=== PATIENT | female | born 1950 | race American Indian/Alaskan Native ===

== ENCOUNTER 2016-04-12 20:22 | Inpatient (IN) | payer OTHER ==
[~2016-04-12 20:22] MED LIST: AMIDATE IV ONE; VERSED IV ONE
[2016-04-12] MEDS ORDERED: LASIX IV ONE (21:55)
[2016-04-12] MEDS ORDERED: BABY ASPIRIN PO ONE (21:58)
--- NOTE | 2016-04-12 21:58 | Emergency Department Report ---
HPI - General Chief Complaint: Dyspnea/Respdistress Time Seen by Provider: 04/12/16 21:34 - HPI HPI: The patient is a 65-year-old female with a significant history of congestive heart failure, presents for evaluation of dyspnea. The patient reports progressive dyspnea since yesterday, greater than 24 hours ago, constant, severe since this evening, exacerbated with lying flat or exertion/physical activity, improves with rest and sitting up. The patient also reports associated swelling of the legs. The patient denies fever, cough, chest pain, hemoptysis, unilateral leg swelling, recent immobilization, history of DVT or PE , recent cancer. ED Past Medical Hx - Past Medical History Previous Medical History?: Yes Hx Hypertension: Yes Hx Congestive Heart Failure: Yes Additional medical history: pinworms 03/2016 - Surgical History Past Surgical History?: Yes Additional Surgical History: hysterectomy - Social History Smoking Status: Current Some Day Smoker Substance Use Type: None - Medications Home Medications: Home Medications Medication Instructions Recorded Confirmed Last Taken Type Aspirin 81 mg PO DAILY 04/12/16 04/12/16 Unknown History Lisinopril [Zestril] 5 mg PO QDAY 04/12/16 04/12/16 Unknown History Metoprolol [Lopressor] 25 mg PO BID 04/12/16 04/12/16 Unknown History Simvastatin [Zocor TAB] 20 mg PO QHS 04/12/16 04/12/16 Unknown History amLODIPine [Norvasc] 10 mg PO DAILY 04/12/16 04/12/16 Unknown History ED Review of Systems ROS: Stated complaint: AMS,WEAKNESS Other details as noted in HPI Constitutional: denies: fever ENT: denies: throat or neck pain Respiratory: reports shortness of breath Cardiovascular: denies: chest pain Endocrine: denies unexplained weight loss or gain Gastrointestinal: denies: abdominal pain, nausea Genitourinary: denies: dysuria Musculoskeletal: reports leg swelling Skin: denies: rash Neurological: denies: headache Hematological/Lymphatic: denies: easy bleeding or easy bruising Psych: denies sadness or hopelessness Physical Exam - Physical Exam Vital Signs: Vital Signs 04/12/16 04/12/16 04/12/16 21:05 21:07 21:10 Temperature 98.3 F 98.3 F Pulse Rate 102 H 104 H 101 H Respiratory 36 H 36 H 38 H Rate Blood Pressure 85/46 90/51 Blood Pressure 85/42 [Left] O2 Sat by Pulse 76 L 76 L 91 Oximetry Physical Exam: General: well-nourished, well-developed, no acute distress Head: Normocephalic, atraumatic Eyes: normal sclera ENT: Mucous membranes are pink and moist Neck: trachea midline, neck supple, No neck stiffness, no cervical adenopathy Respiratory: Diminished breath sounds and crackles presents tothe lung blair bilaterally, costal retractions present, patient in mild respiratory distress Cardio: S1 and S2 present, no murmurs, rubs, gallops, capillary refill is brisk Abdomen: Normoactive bowel sounds, soft abdomen, no rigidity, no guarding or rebound tenderness Musc: 1+ pitting edema of the legs present bilaterally Skin: No rash Neuro: no facial drooping, normal speech Psych: Normal affect ED Course Vital Signs 04/12/16 04/12/16 04/12/16 21:05 21:07 21:10 Temperature 98.3 F 98.3 F Pulse Rate 102 H 104 H 101 H Respiratory 36 H 36 H 38 H Rate Blood Pressure 85/46 90/51 Blood Pressure 85/42 [Left] O2 Sat by Pulse 76 L 76 L 91 Oximetry ED Medical Decision Making - Lab Data Result diagrams: 04/12/16 22:06 04/12/16 22:06 - Medical Decision Making The patient was seen and examined by myself. The patient is placed on a monitoring coordinator and continuous pulse ox. On initial evaluation, the patient was found to be in respiratory distress. The patient is placed on BiPAP. Evaluation orders were placed. Frequent bedside evaluations are performed to assess patient responsiveness to BiPAP. Chest x-ray demonstrates pulmonary vascular congestion and bilateral pleural effusions. Lab results revealed hypoxemia, PO2 56 on ABG, elevated BNP of 10,000 , low Hgb of 7.3, elevated WBC of 21, and elevated creatinine of 2.1. The patient is given IV Lasix for treatment of acute congestive heart failure and one unit of PRBCs is ordered. The patient was reevaluated and found to have decrease in SBP to 70-80, and decrease in oxygen saturation on pulse oximetry to 85%. The patient's ventilation settings are adjusted, including increased and IPAP and EPAP, and the patient is started on a dobutamine drip. Multiple bedside assessments were performed to assess patient hypotension. The patient was again reevaluated and found to have resolution of hypoxia, O2 sat now 95-97%, but the patient has no improvement in blood pressure despite increasing titration of dobutamine drip. The patient is given 500 cc normal saline fluid bolus and started on a Levophed drip. A left femoral central line was placed successfully. The on-call hospitalist service was contacted. They agreed to admit the patient for further treatment and close monitoring. The ED admit order was placed. The patient was admitted in guarded condition. Critical Care Time: Yes Critical care time in (mins) excluding proc time.: 35 Critical care attestation.: Due to the critical nature of this patients presentation, which necessitated multiple bedside assessments, manipulation and supportive measures to prevent further life threatening deterioration, I would like to bill for a total of 35 minutes of critical care time. This was exclusive of any separately billable procedures. Critical Care Time: 35 ED Disposition Clinical Impression: Acute systolic CHF (congestive heart failure), Cardiogenic shock, Acute respiratory failure with hypoxemia, Anemia requiring transfusions, Dehydration, Severe anemia, MAGGIE (acute kidney injury) Disposition: OP ADMITTED IP TO THIS HOSP Is pt being admited?: Yes Does the pt Need Aspirin: Yes Condition: Critical Time of Disposition: 21:47
[2016-04-12 22:18] LABS: Hematocrit 24.3 % (30.3-42.9); Hemoglobin 7.3 gm/dl (10.1-14.3); Mean Corpuscular HGB Conc 30 % (30-34); Platelet Count 289 K/mm3 (140-440); Red Blood Count 3.59 M/mm3 (3.65-5.03)
[2016-04-12 22:20] LABS: Mean Corpuscular Hemoglobin 20 pg (28-32); Mean Corpuscular Volume 68 fl (79-97); Red Cell Distribution Width 20.7 % (13.2-15.2); White Blood Count 21.6 K/mm3 (4.5-11.0)
[2016-04-12 22:38] LABS: BUN/Creatinine Ratio 26.19; Calcium 7.2 mg/dL (8.4-10.2)
[2016-04-12 22:39] LABS: Chloride 100.7 mmol/L (98-107); Potassium 4.7 mmol/L (3.6-5.0)
[2016-04-12 23:53] LABS: ISTAT Base Excess -6; ISTAT PCO2 25.7 (35-45); ISTAT PH 7.454 (7.35-7.45); ISTAT PO2 56 (80-105); ISTAT SO2 91; ISTAT TCO2 19
[2016-04-12] MEDS ORDERED: ZOFRAN IV PRN (23:58)
[2016-04-12] MEDS ORDERED: DULCOLAX PR PRN (23:58)
[2016-04-12] MEDS ORDERED: TYLENOL PO PRN (23:58)
[2016-04-12] MEDS ORDERED: MILK OF MAGNESIA PO PRN (23:58)
--- NOTE | 2016-04-12 23:58 | Event Note ---
Date: 04/12/16 See H/p in reports
[2016-04-13] MEDS ORDERED: NACL 0.9% 1000 ML 500 ML IV ONE (00:19)
[2016-04-13] MEDS ORDERED: PROVENTIL IH ONE (00:22)
[2016-04-13 00:57] LABS: ISTAT Base Excess -3; ISTAT HCO3 20.7; ISTAT PCO2 27.5 (35-45); ISTAT PH 7.484 (7.35-7.45); ISTAT PO2 49 (80-105); ISTAT SO2 88; ISTAT TCO2 21
[2016-04-13] MEDS ORDERED: K-DUR PO SCH (01:00)
[2016-04-13] MEDS ORDERED: LOPRESSOR PO SCH (01:00)
[2016-04-13] MEDS ORDERED: DEXTROSE IV ONE ×2 (01:01→01:14)
[2016-04-13] MEDS ORDERED: DOBUTAMINE IV ONE ×2 (01:01→01:14)
[2016-04-13] MEDS ORDERED: LEVOPHED DRIP 4 MG/NS 250 ML 250 ML IV ONE (01:45)
[2016-04-13] MEDS ORDERED: NACL 0.9% 500 ML 500 ML IV ONE ×3 (01:52→05:32)
[2016-04-13 02:02] LABS: ISTAT Base Excess -6; ISTAT HCO3 18.5; ISTAT PCO2 27.3 (35-45); ISTAT PH 7.438 (7.35-7.45); ISTAT PO2 57 (80-105); ISTAT SO2 91; ISTAT TCO2 19
--- NOTE | 2016-04-13 02:03 | Admit Criteria Form ---
Admission Criteria Documentation: HEART FAILURE: COMMON COMPLICATIONS Clinical Indications for Inpatient Care (Place 'X' for any and all applicable criteria): Ongoing inpatient care may be indicated for heart failure with ANY ONE of the following (1)(2)(3)(4)(5): [ ]I. Ongoing need for care for primary condition requiring frequent therapy adjustments because of changes in cardiac function (eg, drug dosage changes for drugs that are renally metabolized) [ ]II. New-onset heart failure [ ]III. Heart failure with decreased urine output not responsive to attempts to optimize volume status [ ]IV. Acute cardiac ischemia causing or associated with failure [ X]V. Complications of heart failure, including ANY ONE of the following: [ ]a) Pericardial effusion [ ]b) Symptomatic pleural effusion [ ]c) O2 saturation <90% or PO2 < 60 mm Hg (8.0 kPa) on room air or require baseline supplemental O2 [ ]d) Tachypnea [ X]e) Dyspnea [ ]f) Syncope [ ]g) Change in mental status [ ]h) Acute renal insufficiency that is severe (reduction of more than 50% in estimated glomerular filtration rate from baseline) or progressive reduction of more than 25% in estimated glomerular filtration rate from baseline, with creatinine continuing to rise) [ ]i) Hemodynamic instability [ ]j) Anasarca [ ]k) Clinically significant metabolic abnormalities due to heart failure (eg, new-onset metabolic acidosis) Extended stay beyond goal length of stay for primary condition may be needed until ALL of the following are present(1)(3): [ ]a) Stable and effective diuretic regimen established (or patient on stable dialysis regimen if in chronic renal failure) [ ]b) Breathing comfortably at rest [ ]c) Saturation of arterial oxygen greater than 90% or at acceptable baseline [ ]d) Pulmonary edema absent or improved [ ]e) Hemodynamic stability [ ]f) Volume status acceptable on oral medication [ ]g) Peripheral or sacral edema absent or improved [ ]h) Renal function stable and manageable at a lower level of care [ ]i) Complications (eg, pleural effusion) resolved or manageable at a lower level of care [ ]j) Patient or caregiver has received written discharge instructions or educational material addressing activity level, diet, discharge medications, follow-up appointment, weight monitoring, and what to do if symptoms worsen The original [facility] content created by [employer] has been revised. The portions of the content which have been revised are identified through the use of italic text or in bold, and [facility] has neither reviewed nor approved the modified material.All other unmodified content is copyright [facility]. Please see references footnoted in the original [facility] edition 2016 Admission Criteria Met: Yes
[2016-04-13] MEDS: LEVOPHED DRIP 4 MG/NS 250 ML 250 ML IV SCH ×3 (03:15→11:19)
[2016-04-13 03:46] LABS: ISTAT Base Excess -4; ISTAT HCO3 17.7; ISTAT PCO2 19.5 (35-45); ISTAT PH 7.567 (7.35-7.45); ISTAT PO2 180 (80-105); ISTAT SO2 100; ISTAT TCO2 18
[2016-04-13] MEDS ORDERED: ATIVAN IV ONE (04:01)
[2016-04-13 04:12] LABS: Mean Corpuscular HGB Conc 29 % (30-34); Platelet Count 266 K/mm3 (140-440)
[2016-04-13] MEDS ORDERED: ATIVAN ONE (04:18)
[2016-04-13 04:25] LABS: Hematocrit 24.3 % (30.3-42.9); Hemoglobin 6.9 gm/dl (10.1-14.3); Mean Corpuscular Hemoglobin 19 pg (28-32); Mean Corpuscular Volume 68 fl (79-97); Red Cell Distribution Width 20.9 % (13.2-15.2); White Blood Count 20.9 K/mm3 (4.5-11.0)
[2016-04-13 05:12] LABS: Albumin 2.1 g/dL (3.9-5); Albumin/Globulin Ratio 0.5 %; BUN/Creatinine Ratio 27.27; Bilirubin,Total 0.8 mg/dL (0.1-1.2); Calcium 7.2 mg/dL (8.4-10.2); Chloride 102.9 mmol/L (98-107); Potassium 4.4 mmol/L (3.6-5.0); Total Protein 6.7 g/dL (6.3-8.2)
[2016-04-13] MEDS ORDERED: LASIX IV SCH (06:00)
--- NOTE | 2016-04-13 08:30 | XRay Report ---
Portable chest: The heart is probably normal in size. There is no overt vascular congestion however there are bilateral pleural effusions. The possibility of underlying pulmonary atelectasis or infiltrates cannot be excluded. I have no prior study for comparison. Impression: Nonspecific bilateral effusions. Possibility of congestive failure should be considered.
[2016-04-13] MEDS ORDERED: NACL 0.9% 500 ML 500 ML ONE ×2 (08:35→15:30)
[2016-04-13] MEDS ORDERED: DOBUTAMINE IV SCH (09:00)
[2016-04-13] MEDS ORDERED: DEXTROSE IV SCH (09:00)
[2016-04-13] MEDS ORDERED: ZESTRIL PO SCH (10:00)
[2016-04-13] MEDS ORDERED: CORDARONE 900 MG in D5W 482 ML IV SCH (10:00)
[2016-04-13] MEDS ORDERED: ZOSYN/NS 4.5GM/100ML 100 ML IV SCH (10:00)
[2016-04-13] MEDS ORDERED: BABY ASPIRIN PO SCH (10:00)
[2016-04-13] MEDS ORDERED: LOVENOX SUB-Q SCH (10:00)
[2016-04-13] MEDS ORDERED: PEPCID PO SCH (10:00)
[2016-04-13] MEDS ORDERED: NORVASC PO SCH (10:00)
--- NOTE | 2016-04-13 10:07 | Progress Note ---
Assessment and Plan 1. Sepsis with septic shock: Has Lactic acid level of 2.5 and Leukocytosis and Will follow blood culture result and obtain UA to determine source. Add Levaquin and Vanc. Continue with Zosyn. Coustious hydration b/c Heart failure 2. Acute respiratory failure: On BIPAP Having supplemental oxygen and Bronchodilator. Get Repeat CXR 3. Heart Failure: On diuresis, Strick Is and Os. Daily weight, Holding lisinopril b/c hypotension. F/u with ECHO for Characterization of Heart failure 4. Afib with RVR; new onset. Discussed with recovery coordinator. On Amiodorone 5. DVT prophylaxis with lovenox. Subjective Date of service: 04/13/16 Principal diagnosis: Sepsis, heart failure, septic shock Interval history: Still having difficulty in breathing. On BiPAP Objective - Constitutional Vitals: Vital Signs - 12hr 04/13/16 04/13/16 04/13/16 00:00 00:15 00:30 Temperature Pulse Rate 108 H 109 H 109 H Pulse Rate [ Anterior Bilateral] Pulse Rate [ From Monitor] Pulse Rate [ Right Radial] Respiratory 26 H 49 H 45 H Rate Respiratory Rate [Anterior Bilateral] Blood Pressure 87/51 86/48 92/54 O2 Sat by Pulse 85 90 74 L Oximetry 04/13/16 04/13/16 04/13/16 01:00 01:02 01:11 Temperature Pulse Rate 106 H 107 H Pulse Rate [ 107 H Anterior Bilateral] Pulse Rate [ From Monitor] Pulse Rate [ Right Radial] Respiratory 52 H 54 H Rate Respiratory 54 H Rate [Anterior Bilateral] Blood Pressure O2 Sat by Pulse 87 90 Oximetry 04/13/16 04/13/16 04/13/16 01:16 01:30 01:40 Temperature Pulse Rate 110 H 112 H 113 H Pulse Rate [ Anterior Bilateral] Pulse Rate [ From Monitor] Pulse Rate [ Right Radial] Respiratory 52 H 55 H 53 H Rate Respiratory Rate [Anterior Bilateral] Blood Pressure 86/50 76/46 O2 Sat by Pulse 87 91 92 Oximetry 04/13/16 04/13/16 04/13/16 01:46 02:00 02:03 Temperature Pulse Rate 113 H 114 H Pulse Rate [ 110 H Anterior Bilateral] Pulse Rate [ From Monitor] Pulse Rate [ Right Radial] Respiratory 52 H 52 H Rate Respiratory 50 H Rate [Anterior Bilateral] Blood Pressure 76/46 79/50 O2 Sat by Pulse 93 91 Oximetry 04/13/16 04/13/16 04/13/16 02:08 02:16 02:19 Temperature Pulse Rate 116 H 115 H 114 H Pulse Rate [ Anterior Bilateral] Pulse Rate [ From Monitor] Pulse Rate [ Right Radial] Respiratory 48 H 47 H Rate Respiratory Rate [Anterior Bilateral] Blood Pressure 76/46 74/45 O2 Sat by Pulse 93 93 Oximetry 04/13/16 04/13/16 04/13/16 02:30 02:46 03:00 Temperature Pulse Rate 114 H 114 H 111 H Pulse Rate [ Anterior Bilateral] Pulse Rate [ From Monitor] Pulse Rate [ Right Radial] Respiratory 49 H 41 H 50 H Rate Respiratory Rate [Anterior Bilateral] Blood Pressure 72/44 71/45 71/53 O2 Sat by Pulse 93 94 Oximetry 04/13/16 04/13/16 04/13/16 03:15 03:16 03:30 Temperature Pulse Rate 106 H 106 H Pulse Rate [ Anterior Bilateral] Pulse Rate [ From Monitor] Pulse Rate [ Right Radial] Respiratory 48 H 49 H 25 H Rate Respiratory Rate [Anterior Bilateral] Blood Pressure 76/46 80/49 O2 Sat by Pulse 90 86 92 Oximetry 04/13/16 04/13/16 04/13/16 03:46 03:54 04:00 Temperature 98.8 F Pulse Rate 105 H 101 H 105 H Pulse Rate [ Anterior Bilateral] Pulse Rate [ From Monitor] Pulse Rate [ Right Radial] Respiratory 44 H 45 H 46 H Rate Respiratory Rate [Anterior Bilateral] Blood Pressure 85/49 82/51 86/47 O2 Sat by Pulse 93 92 97 Oximetry 04/13/16 04/13/16 04/13/16 04:16 04:27 04:30 Temperature Pulse Rate 103 H 102 H Pulse Rate [ Anterior Bilateral] Pulse Rate [ From Monitor] Pulse Rate [ Right Radial] Respiratory 22 44 H Rate Respiratory Rate [Anterior Bilateral] Blood Pressure 82/44 90/47 O2 Sat by Pulse 95 95 89 Oximetry 04/13/16 04/13/16 04/13/16 04:41 04:46 04:52 Temperature Pulse Rate 102 H 99 H 96 H Pulse Rate [ Anterior Bilateral] Pulse Rate [ From Monitor] Pulse Rate [ Right Radial] Respiratory 41 H 44 H 50 H Rate Respiratory Rate [Anterior Bilateral] Blood Pressure 83/48 83/48 74/49 O2 Sat by Pulse 88 89 92 Oximetry 04/13/16 04/13/16 04/13/16 04:53 04:58 05:00 Temperature Pulse Rate 102 H 101 H Pulse Rate [ Anterior Bilateral] Pulse Rate [ From Monitor] Pulse Rate [ Right Radial] Respiratory 48 H 47 H Rate Respiratory Rate [Anterior Bilateral] Blood Pressure 74/49 88/43 O2 Sat by Pulse 93 93 91 Oximetry 04/13/16 04/13/16 04/13/16 05:13 05:16 05:21 Temperature Pulse Rate 102 H 103 H 102 H Pulse Rate [ Anterior Bilateral] Pulse Rate [ From Monitor] Pulse Rate [ Right Radial] Respiratory 45 H 48 H 46 H Rate Respiratory Rate [Anterior Bilateral] Blood Pressure 89/53 89/53 86/55 O2 Sat by Pulse 93 93 94 Oximetry 04/13/16 04/13/16 04/13/16 05:30 05:32 06:52 Temperature Pulse Rate 97 H 99 H 103 H Pulse Rate [ Anterior Bilateral] Pulse Rate [ From Monitor] Pulse Rate [ Right Radial] Respiratory 44 H 45 H 43 H Rate Respiratory Rate [Anterior Bilateral] Blood Pressure 82/52 82/52 88/56 O2 Sat by Pulse 95 94 Oximetry 04/13/16 04/13/16 04/13/16 07:02 07:15 07:19 Temperature Pulse Rate 104 H 104 H Pulse Rate [ Anterior Bilateral] Pulse Rate [ From Monitor] Pulse Rate [ 103 H Right Radial] Respiratory 36 H 45 H Rate Respiratory Rate [Anterior Bilateral] Blood Pressure 76/53 83/53 83/53 O2 Sat by Pulse 97 97 Oximetry 04/13/16 04/13/16 04/13/16 07:30 07:37 07:39 Temperature Pulse Rate 97 H Pulse Rate [ Anterior Bilateral] Pulse Rate [ 105 H From Monitor] Pulse Rate [ 108 H Right Radial] Respiratory 41 H 40 H 44 H Rate Respiratory Rate [Anterior Bilateral] Blood Pressure 80/53 80/53 O2 Sat by Pulse 86 88 88 Oximetry 04/13/16 04/13/16 04/13/16 07:45 08:00 08:15 Temperature Pulse Rate 110 H 128 H 108 H Pulse Rate [ Anterior Bilateral] Pulse Rate [ From Monitor] Pulse Rate [ Right Radial] Respiratory 32 H 47 H 48 H Rate Respiratory Rate [Anterior Bilateral] Blood Pressure 88/63 88/63 91/48 O2 Sat by Pulse 85 90 Oximetry 04/13/16 04/13/16 04/13/16 08:30 08:36 08:45 Temperature Pulse Rate 108 H 121 H 116 H Pulse Rate [ Anterior Bilateral] Pulse Rate [ From Monitor] Pulse Rate [ Right Radial] Respiratory 44 H 20 28 H Rate Respiratory Rate [Anterior Bilateral] Blood Pressure 84/58 84/58 91/48 O2 Sat by Pulse 86 91 89 Oximetry 04/13/16 04/13/16 04/13/16 09:00 09:14 09:15 Temperature 98.6 F 98.9 F Pulse Rate 112 H 185 H Pulse Rate [ Anterior Bilateral] Pulse Rate [ From Monitor] Pulse Rate [ Right Radial] Respiratory 50 H 54 H 44 H Rate Respiratory Rate [Anterior Bilateral] Blood Pressure 88/51 86/53 O2 Sat by Pulse 87 87 87 Oximetry 04/13/16 04/13/16 04/13/16 09:30 09:34 09:45 Temperature 98.7 F 98.7 F Pulse Rate 183 H 183 H 178 H Pulse Rate [ Anterior Bilateral] Pulse Rate [ From Monitor] Pulse Rate [ Right Radial] Respiratory 44 H 42 H 45 H Rate Respiratory Rate [Anterior Bilateral] Blood Pressure 86/53 74/44 73/44 O2 Sat by Pulse 100 Oximetry General appearance: Present: no acute distress - EENT Eyes: PERRL ENT: hearing intact, clear oral mucosa Ears: bilateral: normal - Neck Neck: supple - Respiratory Respiratory effort: normal Respiratory: bilateral: CTA - Breasts Breasts: normal - Cardiovascular Rhythm: irregularly irregular Heart Sounds: Present: S1 & S2, gallop. Absent: rub Extremities: no ischemia Extremity abnormal: edema - Gastrointestinal General gastrointestinal: Present: soft, non-tender, non-distended - Genitourinary Female genitourinary: normal - Integumentary Integumentary: clear, warm - Musculoskeletal Musculoskeletal: 1, strength equal bilaterally - Neurologic Neurologic: moves all extremities - Psychiatric Psychiatric: memory intact, appropriate mood/affect, intact judgment & insight - Labs CBC & Chem 7: 04/13/16 02:45 04/13/16 04:33 Labs: Abnormal lab results 04/13/16 04/13/16 04/13/16 Range/Units 00:44 01:52 02:45 WBC 20.9 H (4.5-11.0) K/mm3 RBC 3.60 L (3.65-5.03) M/mm3 Hgb 6.9 L (10.1-14.3) gm/dl Hct 24.3 L (30.3-42.9) % MCV 68 L (79-97) fl MCH 19 L (28-32) pg MCHC 29 L (30-34) % RDW 20.9 H (13.2-15.2) % POC ABG pH 7.484 H (7.35-7.45) POC ABG pCO2 27.5 L 27.3 L (35-45) POC ABG pO2 49 L 57 L (80-105) Carbon Dioxide (22-30) mmol/L BUN (7-17) mg/dL Creatinine (0.7-1.2) mg/dL Glucose (65-100) mg/dL Lactic Acid (0.7-2.0) mmol/L Calcium (8.4-10.2) mg/dL AST (5-40) units/L ALT (7-56) units/L Albumin (3.9-5) g/dL Crossmatch 04/13/16 04/13/16 04/13/16 Range/Units 02:45 03:42 04:33 WBC (4.5-11.0) K/mm3 RBC (3.65-5.03) M/mm3 Hgb (10.1-14.3) gm/dl Hct (30.3-42.9) % MCV (79-97) fl MCH (28-32) pg MCHC (30-34) % RDW (13.2-15.2) % POC ABG pH 7.567 H (7.35-7.45) POC ABG pCO2 19.5 L (35-45) POC ABG pO2 180 H (80-105) Carbon Dioxide 17 L (22-30) mmol/L BUN 60 H (7-17) mg/dL Creatinine 2.2 H (0.7-1.2) mg/dL Glucose 106 H (65-100) mg/dL Lactic Acid (0.7-2.0) mmol/L Calcium 7.2 L (8.4-10.2) mg/dL AST 188 H (5-40) units/L ALT 71 H (7-56) units/L Albumin 2.1 L (3.9-5) g/dL Crossmatch See Detail 04/13/16 Range/Units 04:33 WBC (4.5-11.0) K/mm3 RBC (3.65-5.03) M/mm3 Hgb (10.1-14.3) gm/dl Hct (30.3-42.9) % MCV (79-97) fl MCH (28-32) pg MCHC (30-34) % RDW (13.2-15.2) % POC ABG pH (7.35-7.45) POC ABG pCO2 (35-45) POC ABG pO2 (80-105) Carbon Dioxide (22-30) mmol/L BUN (7-17) mg/dL Creatinine (0.7-1.2) mg/dL Glucose (65-100) mg/dL Lactic Acid 2.5 H* (0.7-2.0) mmol/L Calcium (8.4-10.2) mg/dL AST (5-40) units/L ALT (7-56) units/L Albumin (3.9-5) g/dL Crossmatch
--- NOTE | 2016-04-13 11:05 | History and Physical Report ---
CHIEF COMPLAINT: Severe shortness of breath for 24 hours' duration. HISTORY OF PRESENT ILLNESS: A 65-year-old female presents with sudden onset of shortness of breath of 1-day duration. Exacerbated by lying down, new onset, and never had a similar problem before. The patient denies having state of exacerbation in the past, but states that she has CHF. The patient also reports that ____. No chest pain. Severe orthopnea present. Very tachypneic. PAST MEDICAL HISTORY: Significant for, 1. Hypertension. 2. Congestive heart failure. 3. ____. Additional past medical history significant for hyperlipidemia. PAST SURGICAL HISTORY: Hysterectomy. SOCIAL HISTORY: Past smoker, about half a pack a day. FAMILY HISTORY: Significant for hypertension. CURRENT MEDICATIONS: Aspirin 81 mg p.o. daily, lisinopril 5 mg p.o. daily, Lopressor 25 mg p.o. b.i.d., simvastatin 20 mg p.o. at bedtime, amlodipine 10 mg p.o. daily. REVIEW OF SYSTEMS: Significant for constipation. No fever, no chills, no weight loss. HEENT: No sore throat. No postnasal drip. CARDIOVASCULAR AND RESPIRATORY SYSTEM: Severe shortness of breath at rest and tachypnea present. No chest pain. No diaphoresis. No palpitations. GASTROINTESTINAL: No nausea, no vomiting, no diarrhea. GENITOURINARY SYSTEM: No dysuria, no flank pain. MUSCULOSKELETAL SYSTEM: No joint pain. CENTRAL NERVOUS SYSTEM: No syncope, no seizures. SKIN: No rashes. PSYCHIATRIC: No depression, hopelessness, or suicidal or homicidal ideation. HEMATOLOGICAL AND LYMPHATIC SYSTEM: Denies easy bleeding or easy bruising. A 14-point review of systems is done. Other than the severe shortness of breath and tachypnea, review of systems is essentially negative. No fever, no chills. PHYSICAL EXAMINATION: GENERAL: Elderly female, very tachypneic and appears in moderate to severe respiratory distress. VITAL SIGNS: Temperature 98.6, pulse is 110, respiratory rate is 32-47 and 50. Blood pressure is 88/63. Pulse ox was also low, 86, 88, 88. HEENT: Unremarkable. NECK: Accessory muscles of respiration are prominent. The patient on BiPAP machine. CHEST AND RESPIRATORY SYSTEM: Bilateral inspiratory and expiratory rales and rhonchi present. CARDIOVASCULAR: S1, S2 heard. No gallop, no murmur, no rub. Apical impulse in left fifth intercostal space and midclavicular line. ABDOMEN: Soft and benign. No hepatosplenomegaly, No guarding, no rigidity. Hernial orifices are normal. EXTREMITIES: 2+ pedal edema present. CENTRAL NERVOUS SYSTEM: Alert, but in distress. No focal deficits. LABORATORY DATA: Significant for white count of 21,600, H and H of 7.3 and 24.3, platelet count is 289,000. ABG significant for pH of 7.454, pCO2 of 25.7, pO2 of 56, bicarbonate of 18, O2 sat of 91, FiO2 100. Sodium is 137, potassium is 4.7, chloride is 100.7, bicarbonate is 19, BUN and creatinine are 55 and 2.1, glucose is 131. A1c is 5.8, calcium is 7.2. Lactic acid is 2.5. BNP is 10,344. DIAGNOSTIC DATA: EKG shows LVH and sinus tachycardia of 110 per minute. EMERGENCY DEPARTMENT COURSE: The patient continued to doing poorly. Systolic blood pressure in the 70s-80s ____. Hypoxia was resolved with BiPAP and oxygen. No improvement in the blood pressure and the patient was started on dobutamine for increasing the blood pressure. IPAP and EPAP were increased. Chest x-ray shows nonspecific bilateral effusions, possibility of congestive heart failure should be considered. Possibility of underlying pulmonary atelectasis or infiltrate cannot be excluded on the chest x-ray by the radiologist. ASSESSMENT AND PLAN: 1. Acute respiratory failure. The patient on BiPAP. Also, Xopenex initiated. The patient does not have any history of chronic obstructive pulmonary disease. 2. Acute congestive heart failure exacerbation. The patient was initially started on Lasix 40 q.12, but was decreased to 40 q.24 because of the low blood pressures. We may have to cut down to 20 mg IV if necessary. In the meantime, we will continue at 40; even though initially ordered as q.12, we decreased it to q.24. Echocardiogram ordered to get the ejection fraction. 3. Sepsis, high possibility. Possible underlying pneumonia. We will treat with broad spectrum antibiotics, IV Zosyn 4.5 q.8. 4. Hypotension. Levophed versus dobutamine drip to be started to increase the blood pressure, increase the perfusion. We will hold the lisinopril and metoprolol. 5. Hyperlipidemia. We will hold the simvastatin 20 mg daily. 6. Deep venous thrombosis prophylaxis, Lovenox 40 mg subcutaneous daily. JOB# [id number] DELORES/NTS
--- NOTE | 2016-04-13 11:27 | Echocardiography Report ---
Transthoracic Echocardiogram Indication: CHF BP: 82/52 HR: 191 Conclusions *The left ventricular chamber size is normal. *Anterior wall hypertrophy is observed. *Septal wall hypertrophy is observed. *Global left ventriclar systolic function appears hyperdynamic. *The estimated ejection fraction is 70-75%. *The left atrium is severely dilated. *The mitral valve leaflets are moderately thickened. *Systolic anterior motion is visualized with left ventricular outflow tract obstruction.The peak gradient is 56 mm Hg across the LVOT. *There is severe mitral regurgitation. *The mitral regurgitant jet is posteriorly directed. *There is mild tricuspid regurgitation. *The right ventricular systolic pressure is calculated at 41 mmHg. Findings Procedure Info: The study quality is fair. The study was technically limited due to the patient's inability to lay in the left lateral decubitus position. Left Ventricle: The left ventricular chamber size is normal. Anterior wall hypertrophy is observed. Septal wall hypertrophy is observed. Global left ventriclar systolic function appears hyperdynamic. The estimated ejection fraction is 70-75%. Left Atrium: The left atrium is severely dilated. Right Ventricle: The right ventricle wall thickness is mildly increased. The right ventricular cavity size is normal. The right ventricular global systolic function is normal. Right Atrium: The right atrial cavity size is normal. Aortic Valve: The aortic valve is not well visualized. There is no evidence of aortic regurgitation. There is no evidence of aortic stenosis. Mitral Valve: The mitral valve leaflets are moderately thickened. There is severe mitral regurgitation. The mitral regurgitant jet is posteriorly directed. There is no evidence of mitral stenosis. Systolic anterior motion is visualized with left ventricular outflow tract obstruction.The peak gradient is 56 mm Hg across the LVOT. Tricuspid Valve: The tricuspid valve is not well visualized. There is mild tricuspid regurgitation. The right ventricular systolic pressure is calculated at 41 mmHg. There is evidence of mild pulmonary hypertension. There is no tricuspid stenosis. Pulmonic Valve: The pulmonic valve is not well visualized. There is trace pulmonic regurgitation. There is no pulmonic stenosis. Pericardium: There is no pericardial effusion. No pleural effusion is present. Pulmonary Artery: The main pulmonary artery is not well visualized. Venous: The inferior vena cava appears normal. Measurements Chambers 2D Name Value Normal Range IVSd (2D) 1.81 cm (0.6 - 1.1) LVPWd 1.4 cm - LVPWd (2D) 1.4 cm (0.6 - 1.1) IVS:LVPW ratio (2D) 1.29 ratio - LVIDd 3.33 cm - LVIDs 2.1 cm - LVIDd (2D) 3.33 cm (3.7 - 5.6) LVIDs (2D) 2.06 cm (2 - 3.8) LV FS (Teichholz) (2D) 38.1 % - LV FS (cube) (2D) 38.1 % - LV EF (2D) 69 % - EF Teichholz (2D) 69.6 % - LA dimension 5.9 cm - Ao root diameter (2D) 3.2 cm (2 - 3.7) LA dimension (AP) 2D 5.9 cm (1.9 - 4) LA:Ao ratio (2D) 1.84 ratio - Volumes/Mass Name Value Normal Range LA ESV SP 4CH (MOD) 81 ml - LV EDV SP 4CH (MOD) 37 ml - LV ESV SP 4CH (MOD) 22 ml - EF SP 4CH (MOD) 41 % - Diastolic/Systolic Function Name Value Normal Range MV E-wave Vmax 0.98 m/sec - MV deceleration time 74 msec - LV septal e' Vmax 0.06 m/sec - LV E:e' septal ratio 16 ratio - Aortic Valve Name Value Normal Range AV VTI 40.9 cm - AV mean gradient 26 mmHg - LVOT diameter 1.7 cm - LVOT VTI 24.4 cm - LVOT mean gradient 10 mmHg - SV LVOT 55 ml - JORGE (continuity VTI) 1.35 cm2 - Tricuspid Valve Name Value Normal Range TR Vmax 3.08 m/sec - TR peak gradient 38 mmHg - RAP 8 mmHg - RVSP 41 mmHg - Pulmonic Valve/Qp:Qs Name Value Normal Range PV Vmax 0.88 m/sec - PV peak gradient 3 mmHg - PV acceleration time 100 msec -
[2016-04-13] MEDS ORDERED: SUBLIMAZE IV ONE ×2 (11:58→17:06)
[2016-04-13] MEDS ORDERED: VERSED IV ONE ×2 (11:58)
[2016-04-13] MEDS ORDERED: SUBLIMAZE ONE ×2 (11:58→17:06)
[2016-04-13] MEDS ORDERED: NACL 0.9% 1000 ML 1,000 ML IV SCH ×2 (12:00→13:00)
--- NOTE | 2016-04-13 12:52 | Consultation ---
History of Present Illness Consult date: 04/13/16 Consult reason: hypotension, tachycardia History of present illness: Patient admitted with respiratory failure, given IV lasix in the ER and placed on BiPAP therapy. Patient is not able to provide much history. Labs are pertinent for anemia and renal failure. Her echo also is pertinent for a normal LVEF, and LALA with LVOT obstruction. Tele was sinus tachycardia and then patient developed atrial fibrillation. Medications and Allergies Allergies Allergy/AdvReac Type Severity Reaction Status Date / Time No Known Allergies Allergy Verified 04/12/16 23:10 Home Medications Medication Instructions Recorded Confirmed Last Taken Type Aspirin 81 mg PO DAILY 04/12/16 04/12/16 Unknown History Lisinopril [Zestril] 5 mg PO QDAY 04/12/16 04/12/16 Unknown History Metoprolol [Lopressor] 25 mg PO BID 04/12/16 04/12/16 Unknown History Simvastatin [Zocor TAB] 20 mg PO QHS 04/12/16 04/12/16 Unknown History amLODIPine [Norvasc] 10 mg PO DAILY 04/12/16 04/12/16 Unknown History Active Meds: Active Medications Acetaminophen (Tylenol) 650 mg PO Q4H PRN PRN Reason: Pain MILD(1-3)/Fever >100.5/DOMINGUEZ Amlodipine Besylate (Norvasc) 10 mg PO DAILY BRYANT Aspirin (Baby Aspirin) 81 mg PO DAILY BRYANT Bisacodyl (Dulcolax) 10 mg AR QDAY PRN PRN Reason: Constipation unrelieved by MOM Enoxaparin Sodium (Lovenox) 30 mg SUB-Q QDAY BRYANT Famotidine (Pepcid) 20 mg PO QAM BRYANT Furosemide (Lasix) 40 mg IV QDAY BRYANT Amiodarone HCl 900 mg/ (Dextrose) 500 mls @ 33.33 mls/hr IV DIRECT BRYANT; 1 MG /MIN PRN Reason: Protocol Last Admin: 04/13/16 10:23 Dose: 33.33 mls/hr Sodium Chloride (Nacl 0.9% 1000 Ml) 1,000 mls @ 999 mls/hr IV DIRECT BRYANT Stop: 04/13/16 13:01 Last Admin: 04/13/16 11:51 Dose: 999 mls/hr Vasopressin 20 unit/ Sodium (Chloride) 101 mls @ 9.09 mls/hr IV TITR BRYANT; 0.03 UNITS/MIN PRN Reason: Protocol Last Admin: 04/13/16 12:41 Dose: 12.12 mls/hr Lisinopril (Zestril) 5 mg PO QDAY BRYANT Magnesium Hydroxide (Milk Of Magnesia) 30 ml PO Q4H PRN PRN Reason: Constipation Ondansetron HCl (Zofran) 4 mg IV Q8H PRN PRN Reason: N/V unrelieved by Reglan Potassium Chloride (K-Dur) 20 meq PO BID BRYANT Last Admin: 04/13/16 02:17 Dose: Not Given Simvastatin (Zocor) 20 mg PO QHS BRYANT Review of Systems ROS unobtainable: due to mental status Physical Examination Vital Signs BP Pulse Ox 85/41 94 04/12/16 20:32 04/12/16 20:32 General appearance: severe distress Neck: Positive: neck supple. Negative: JVD/HJR Cardiac: Positive: irregularly irregular Lungs: Positive: Ventilated Respirations Abdomen: Positive: Soft Extremities: Present: normal. Absent: edema Results 04/13/16 02:45 04/13/16 04:33 Cardiac Enzymes 04/13/16 Range/Units 04:33 AST 188 H (5-40) units/L CBC 04/13/16 Range/Units 02:45 WBC 20.9 H (4.5-11.0) K/mm3 RBC 3.60 L (3.65-5.03) M/mm3 Hgb 6.9 L (10.1-14.3) gm/dl Hct 24.3 L (30.3-42.9) % Plt Count 266 (140-440) K/mm3 Comprehensive Metabolic Panel 04/13/16 Range/Units 04:33 Sodium 139 (137-145) mmol/L Potassium 4.4 (3.6-5.0) mmol/L Chloride 102.9 (98-107) mmol/L Carbon Dioxide 17 L (22-30) mmol/L BUN 60 H (7-17) mg/dL Creatinine 2.2 H (0.7-1.2) mg/dL Glucose 106 H (65-100) mg/dL Calcium 7.2 L (8.4-10.2) mg/dL AST 188 H (5-40) units/L ALT 71 H (7-56) units/L Alkaline Phosphatase 38 (35-129) units/L Total Protein 6.7 (6.3-8.2) g/dL Albumin 2.1 L (3.9-5) g/dL Assessment and Plan 1. Hemorrhagic/vasodilatory shock 2. 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 Acute renal failure/prerenal azotemia 4. Anemia of unclear origin 5. Paroxysmal atrial fibrillation s/p 100 J Synchronized shock due to hemodynamic instability 6. Leukocytosis/AG metabolic acidosis/lactic acidosis Recommendations: Aggressive IV hydration IV amiodarone for afib suppression Avoid beta agonistic pressors or inotropes - they will worsen her LALA, LVOT gradient and results in a further drop in her blood pressure. Use only vasopressin or neosynephrine for pressor support No anticoagulation for afib due to anemia of unclear origin
--- NOTE | 2016-04-13 12:54 | Consultation ---
History of Present Illness Consult date: 04/13/16 Requesting physician: SANTIAGO CUEVA Reason for consult: other (SVT with hypotension and acute respiratory failure) History of present illness: 65 y/o female in SVT, HR in the 200's. Hypotensive so started on levophed. HR did not improve with amio drip so cardiology cardioverted with 100 joules. Still on bipap therapy but now in sinus tach. BP remains marginal. She was also found to be anemic. CXR shows bilateral pleural effusions and alveolar filling patterns, most likely consistent with edema. Medications and Allergies Allergies Allergy/AdvReac Type Severity Reaction Status Date / Time No Known Allergies Allergy Verified 04/12/16 23:10 Home Medications Medication Instructions Recorded Confirmed Last Taken Type Aspirin 81 mg PO DAILY 04/12/16 04/12/16 Unknown History Lisinopril [Zestril] 5 mg PO QDAY 04/12/16 04/12/16 Unknown History Metoprolol [Lopressor] 25 mg PO BID 04/12/16 04/12/16 Unknown History Simvastatin [Zocor TAB] 20 mg PO QHS 04/12/16 04/12/16 Unknown History amLODIPine [Norvasc] 10 mg PO DAILY 04/12/16 04/12/16 Unknown History Active Meds: Active Medications Acetaminophen (Tylenol) 650 mg PO Q4H PRN PRN Reason: Pain MILD(1-3)/Fever >100.5/DOMINGUEZ Amlodipine Besylate (Norvasc) 10 mg PO DAILY BRYANT Aspirin (Baby Aspirin) 81 mg PO DAILY BRYANT Bisacodyl (Dulcolax) 10 mg ND QDAY PRN PRN Reason: Constipation unrelieved by MOM Enoxaparin Sodium (Lovenox) 30 mg SUB-Q QDAY BRYANT Famotidine (Pepcid) 20 mg PO QAM BRYANT Furosemide (Lasix) 40 mg IV QDAY BRYANT Norepinephrine (Levophed Drip 4 Mg/Ns 250 Ml) 250 mls @ 7.5 mls/hr IV TITR BRYANT ; 2 MCG/MIN PRN Reason: Protocol Last Admin: 04/13/16 11:19 Dose: 112.5 mls/hr Dobutamine HCl/Dextrose (Dobutrex Drip 500mg/D5w 250ml) 250 mls @ 3.554 mls/hr IV TITR BRYANT; 2 MCG/KG/MIN PRN Reason: Protocol Last Admin: 04/13/16 09:16 Dose: 3.554 mls/hr Amiodarone HCl 900 mg/ (Dextrose) 500 mls @ 33.33 mls/hr IV DIRECT BRYANT; 1 MG /MIN PRN Reason: Protocol Last Admin: 04/13/16 10:23 Dose: 33.33 mls/hr Sodium Chloride (Nacl 0.9% 1000 Ml) 1,000 mls @ 999 mls/hr IV DIRECT BRYANT Stop: 04/13/16 13:01 Last Admin: 04/13/16 11:51 Dose: 999 mls/hr Vasopressin 20 unit/ Sodium (Chloride) 101 mls @ 9.09 mls/hr IV TITR BRYANT; 0.03 UNITS/MIN PRN Reason: Protocol Last Admin: 04/13/16 12:41 Dose: 12.12 mls/hr Lisinopril (Zestril) 5 mg PO QDAY BRYANT Magnesium Hydroxide (Milk Of Magnesia) 30 ml PO Q4H PRN PRN Reason: Constipation Ondansetron HCl (Zofran) 4 mg IV Q8H PRN PRN Reason: N/V unrelieved by Reglan Potassium Chloride (K-Dur) 20 meq PO BID BRYANT Last Admin: 04/13/16 02:17 Dose: Not Given Simvastatin (Zocor) 20 mg PO QHS BRYANT Physical Examination Vital signs: Vital Signs BP Pulse Ox 85/41 94 04/12/16 20:32 04/12/16 20:32 Results - Laboratory Findings CBC and BMP: 04/13/16 02:45 04/13/16 04:33 ABG POC ABG pH 7.567 (7.35-7.45) H 04/13/16 03:42 POC ABG pCO2 19.5 (35-45) L 04/13/16 03:42 POC ABG pO2 180 (80-105) H 04/13/16 03:42 POC ABG HCO3 17.7 04/13/16 03:42 POC ABG Total CO2 18 04/13/16 03:42 POC ABG O2 Sat 100 04/13/16 03:42 Abnormal lab findings: Abnormal Labs 04/13/16 04/13/16 04/13/16 00:44 01:52 02:45 WBC 20.9 H RBC 3.60 L Hgb 6.9 L Hct 24.3 L MCV 68 L MCH 19 L MCHC 29 L RDW 20.9 H POC ABG pH 7.484 H POC ABG pCO2 27.5 L 27.3 L POC ABG pO2 49 L 57 L Carbon Dioxide BUN Creatinine Glucose Lactic Acid Calcium AST ALT Albumin Crossmatch 04/13/16 04/13/16 04/13/16 02:45 03:42 04:33 WBC RBC Hgb Hct MCV MCH MCHC RDW POC ABG pH 7.567 H POC ABG pCO2 19.5 L POC ABG pO2 180 H Carbon Dioxide 17 L BUN 60 H Creatinine 2.2 H Glucose 106 H Lactic Acid Calcium 7.2 L AST 188 H ALT 71 H Albumin 2.1 L Crossmatch See Detail 04/13/16 04:33 WBC RBC Hgb Hct MCV MCH MCHC RDW POC ABG pH POC ABG pCO2 POC ABG pO2 Carbon Dioxide BUN Creatinine Glucose Lactic Acid 2.5 H* Calcium AST ALT Albumin Crossmatch Assessment and Plan 65 y/o female with SVT, hypotension, anemia and acute respiratory failure 1. Continue bipap therapy as ordered 2. Will ask RT for art line 3. Volume resuscitation per cards 4. Rate control per cards 5. Per cards they prefer vasopressin or neosynephrine, given Echo findings, no levophed 6. Agree with blood transfusion 7. Will repeat ABG later today. CCT 31 minutes.
--- NOTE | 2016-04-13 12:54 | Consultation ---
History of Present Illness Consult date: 04/13/16 Consult reason: congestive heart failure History of present illness: This is a 65yr old woman who presented to this hospital with shortness of breath. Found hypotensive, anemic with HCT 24 and in respiratory disease and admitted to CCU. Currently on Bipap, levophed and receiving 1 unit of blood. Temp 99.0. Chest x-ray reports bilateral pleural effusions. Cardiac consultation requested. Medications and Allergies Allergies Allergy/AdvReac Type Severity Reaction Status Date / Time No Known Allergies Allergy Verified 04/12/16 23:10 Home Medications Medication Instructions Recorded Confirmed Last Taken Type Aspirin 81 mg PO DAILY 04/12/16 04/12/16 Unknown History Lisinopril [Zestril] 5 mg PO QDAY 04/12/16 04/12/16 Unknown History Metoprolol [Lopressor] 25 mg PO BID 04/12/16 04/12/16 Unknown History Simvastatin [Zocor TAB] 20 mg PO QHS 04/12/16 04/12/16 Unknown History amLODIPine [Norvasc] 10 mg PO DAILY 04/12/16 04/12/16 Unknown History Active Meds: Active Medications Acetaminophen (Tylenol) 650 mg PO Q4H PRN PRN Reason: Pain MILD(1-3)/Fever >100.5/DOMINGUEZ Amlodipine Besylate (Norvasc) 10 mg PO DAILY BRYANT Aspirin (Baby Aspirin) 81 mg PO DAILY BRYANT Bisacodyl (Dulcolax) 10 mg MN QDAY PRN PRN Reason: Constipation unrelieved by MOM Enoxaparin Sodium (Lovenox) 30 mg SUB-Q QDAY BRYANT Famotidine (Pepcid) 20 mg PO QAM BRYANT Furosemide (Lasix) 40 mg IV QDAY BRYANT Amiodarone HCl 900 mg/ (Dextrose) 500 mls @ 33.33 mls/hr IV DIRECT BRYANT; 1 MG /MIN PRN Reason: Protocol Last Admin: 04/13/16 10:23 Dose: 33.33 mls/hr Sodium Chloride (Nacl 0.9% 1000 Ml) 1,000 mls @ 999 mls/hr IV DIRECT BRYANT Stop: 04/13/16 13:01 Last Admin: 04/13/16 11:51 Dose: 999 mls/hr Vasopressin 20 unit/ Sodium (Chloride) 101 mls @ 9.09 mls/hr IV TITR BRYANT; 0.03 UNITS/MIN PRN Reason: Protocol Last Admin: 04/13/16 12:41 Dose: 12.12 mls/hr Lisinopril (Zestril) 5 mg PO QDAY BRYANT Magnesium Hydroxide (Milk Of Magnesia) 30 ml PO Q4H PRN PRN Reason: Constipation Ondansetron HCl (Zofran) 4 mg IV Q8H PRN PRN Reason: N/V unrelieved by Reglan Potassium Chloride (K-Dur) 20 meq PO BID BRYANT Last Admin: 04/13/16 02:17 Dose: Not Given Simvastatin (Zocor) 20 mg PO QHS BRYANT Physical Examination Vital Signs BP Pulse Ox 85/41 94 04/12/16 20:32 04/12/16 20:32 General appearance: mild distress Cardiac: Positive: irregularly irregular Lungs: Positive: Decreased Breath Sounds Results 04/13/16 02:45 04/13/16 04:33 Cardiac Enzymes 04/13/16 Range/Units 04:33 AST 188 H (5-40) units/L CBC 04/13/16 Range/Units 02:45 WBC 20.9 H (4.5-11.0) K/mm3 RBC 3.60 L (3.65-5.03) M/mm3 Hgb 6.9 L (10.1-14.3) gm/dl Hct 24.3 L (30.3-42.9) % Plt Count 266 (140-440) K/mm3 Comprehensive Metabolic Panel 04/13/16 Range/Units 04:33 Sodium 139 (137-145) mmol/L Potassium 4.4 (3.6-5.0) mmol/L Chloride 102.9 (98-107) mmol/L Carbon Dioxide 17 L (22-30) mmol/L BUN 60 H (7-17) mg/dL Creatinine 2.2 H (0.7-1.2) mg/dL Glucose 106 H (65-100) mg/dL Calcium 7.2 L (8.4-10.2) mg/dL AST 188 H (5-40) units/L ALT 71 H (7-56) units/L Alkaline Phosphatase 38 (35-129) units/L Total Protein 6.7 (6.3-8.2) g/dL Albumin 2.1 L (3.9-5) g/dL Assessment and Plan Acute hypoxic respiratory failure Anemia requiring blood transfusion Atrial fibrillation with RVR Acute renal failure Hypotensive on pressor support
[2016-04-13] MEDS ORDERED: PITRESSin 20 UNIT in NACL 0.9% 100 ML IV SCH (13:30)
[2016-04-13] MEDS ORDERED: NEO-SYNEPHRINE 100 MG in NACL 0.9% 90 ML IV SCH (16:00)
--- NOTE | 2016-04-13 18:06 | Event Note ---
Date: 04/13/16 Called to come see patient secondary to persistent hypotension, decreasing heart rate and worsening tachypnea. No family at bedside. Patient not able to give consent. Given emergent situation, elected to intubate for fear of pending respiratory doom. Induced with fentanyl, etomidate and versed. Airway attempted to be intubated 3x. Grade IV view with only seeing the very bottom of the vocal cords. Patient began to become bradycardic and CPR began. Patient was treated several rounds of epinephrine with ROSC achieved only one time. After about 25 minutes of CPR, patient had asystole on monitor. Time of was documented at 17:53. Several attempts were made to call family members with no success.
[2016-04-13 20:03] VITALS: BP 92/14
[2016-04-13] MEDS ORDERED: ZOCOR PO SCH (22:00)
[2016-04-14] MEDS ORDERED: LASIX IV SCH (10:00)
--- NOTE | 2016-04-14 10:11 | History and Physical Report ---
ADDENDUM ASSESSMENT AND PLAN: Anemia, acute. We will transfuse 2 units. This may help with sepsis and oxygenation. CRITICAL CARE STATEMENT: The high probability of the clinically significant sudden or life threatening deterioration of the cardiovascular system required my full and direct attention, intervention, and personal management. Aggregate critical care time was 40 minutes. The time is in addition to time spent performing reported procedures, but includes the following, data review and interpretation, patient assessment and monitoring of vital signs, documentation, medication orders and management. JOB# [id number] DELORES/JIL
[2016-04-14] MEDS ORDERED: INTROPIN DRIP 800 MG/D5W 250 ML IV ONE (17:55)
[2016-04-14] MEDS ORDERED: ATROPINE 0.1% (CARDIAC) ONE (17:55)
[2016-04-14] MEDS ORDERED: ADRENALIN ONE (17:55)
== END 2016-04-13 23:55 | DRG 871 ==
LOC: ED 20:22 → CC1 23:47
PROVIDERS: ADMIT Internal Medicine; ATTEND Family Medicine
PROC: 5A09457 Assistance with Respiratory Ventilation, 24-96 Consecutive Hours, Continuous Positive Airway Pressure (ICD-10-PCS; principal; 2016-04-12)
PROC: 4A033R1 Measurement of Arterial Saturation, Peripheral, Percutaneous Approach (ICD-10-PCS; 2016-04-12)
PROC: 5A12012 Performance of Cardiac Output, Single, Manual (ICD-10-PCS; 2016-04-13)
PROC: 30233N1 Transfusion of Nonautologous Red Blood Cells into Peripheral Vein, Percutaneous Approach (ICD-10-PCS; 2016-04-13)
DX: A41.9 Sepsis, unspecified organism (principal); I50.21 Acute systolic (congestive) heart failure; J96.01 Acute respiratory failure with hypoxia; R65.21 Severe sepsis with septic shock; N17.9 Acute kidney failure, unspecified; I47.1 Supraventricular tachycardia; I42.1 Obstructive hypertrophic cardiomyopathy; E87.2 Acidosis; I11.0 Hypertensive heart disease with heart failure; D64.9 Anemia, unspecified; E86.0 Dehydration; E78.5 Hyperlipidemia, unspecified; I73.89 Other specified peripheral vascular diseases; R58 Hemorrhage, not elsewhere classified; I34.0 Nonrheumatic mitral (valve) insufficiency; I48.0 Paroxysmal atrial fibrillation; Z86.19 Personal history of other infectious and parasitic diseases; Z90.710 Acquired absence of both cervix and uterus; Z79.82 Long term (current) use of aspirin; Z79.899 Other long term (current) drug therapy; Z87.891 Personal history of nicotine dependence
CPT/HCPCS: 36415; 36600; 51702; 71010; 80048; 80053; 82140; 82803; 83036; 83880; 85007; 85027; 86850; 86900; 86901; 86920; 87040; 87045; 87177; 87493; 93005; 93010; 93306; 94640; 94660; 96365; 96366; 96375; J0171; J0282; J0461; J1250; J1265; J1650; J1940; J2060; J2250; J2370; J3010; J7030; J7040; J7060; P9016